=== PATIENT | male | born 2000 | race Caucasian/White ===

== ENCOUNTER 2019-03-21 11:52 | Day surgery (SDC) | payer OTHER ==
[~2019-03-21] VITALS: Ht 182.9 cm; Wt 78.3 kg
[~2019-03-21 11:52] MED LIST: NO ACTIVE MEDS
[2019-03-21 14:21] VITALS: BP 120/66; PULSE 74; RESP 18
[2019-03-21] MEDS ORDERED: PROPOFOL 40 ML ONE (14:59)
[2019-03-21] MEDS ORDERED: LIDOCAINE 2% (SDV) 5 ML INJ ONE (15:00)
[2019-03-21] MEDS ORDERED: ONDANSETRON 4 MG INJ IV PRN (15:30)
[2019-03-21] MEDS ORDERED: FENTAnyl 50 MCG/ML VIAL IV PRN (15:30)
[2019-03-21 15:43] VITALS: BP 115/57; PULSE 72; RESP 18
== END 2019-03-21 15:55 | disposition home or self-care (01) ==
LOC: GIL 11:52
PROVIDERS: ATTEND Internal Medicine Gastroenterology
DX: K20.9 Esophagitis, unspecified (principal); F17.200 Nicotine dependence, unspecified, uncomplicated
CPT/HCPCS: 43239; 88305; Z7610